=== PATIENT | female | born 1990 | race African-American/Black ===

== ENCOUNTER 2019-02-16 03:07 | Inpatient (IN) | payer SELFPAY ==
[~2019-02-16] VITALS: Ht 162.6 cm; Wt 65.1 kg
[2019-02-16 05:57] LABS: Basophils # (auto) 0.1 uL; Basophils % (auto) 0.5 % (0.0-2.0); Eosinophils # (auto) 0 uL; Eosinophils % (auto) 0.3 % (0.0-7.0); Hematocrit 34.7 % (36.0-46.0); Hemoglobin 11.4 g/dL (12.2-16.2); Lymphocytes # (auto) 1.6 uL; Lymphocytes % (auto) 15.3 % (10.0-50.0); Mean Corpuscular Hemoglobin 28.4 pg (28.0-32.0); Mean Corpuscular Hgb Conc. 32.7 g/dL (32.0-36.0); Mean Corpuscular Volume 86.9 fL (80.0-100.0); Monocytes # (auto) 0.5 uL; Monocytes % (auto) 5.2 % (0.0-12.0); Neutrophils % (auto) 78.7 % (37.0-80.0); Platelet Count (auto) 249 10^3/uL (140-450); Red Cell Distribution Width 13.3 % (11.8-14.3); White Blood Cell 10.2 10^3/uL (4.4-10.8)
[2019-02-16 05:59] LABS: Urine Amorphous Crystal MOD /hpf (None Seen); Urine Bacteria FEW /hpf (None Seen); Urine Blood Negative /uL (Negative); Urine Mucus FEW (None Seen); Urine Specific Gravity 1.019 (1.001-1.035); Urine WBC 1 /hpf (0 - 5)
[2019-02-16 06:21] LABS: Albumin 3.9 g/dL (3.4-5.0); Calcium 8.5 mg/dL (8.5-10.1); Potassium 3.9 mmol/L (3.5-5.1)
[2019-02-16] MEDS ORDERED: SODIUM CHLORIDE 0.9% 1,000 ML IV ONE ×2 (06:23)
[2019-02-16 06:26] LABS: BUN/Creatinine Ratio 13.5; Bilirubin, Total 0.3 mg/dL (0.2-1.0); Total Protein 7.9 g/dL (6.4-8.2)
[2019-02-16] MEDS ORDERED: DONNATAL 5ml ORAL Elix (BELLADONNA ALK-PHENOBARB) PO ONE (06:30)
[2019-02-16] MEDS ORDERED: LIDOCAINE VISCOUS 2% 15ML UD PO ONE (06:30)
[2019-02-16] MEDS ORDERED: ALUM & MAG HYDROX-SIMETH LIQ(MAALOX) 30 ML PO ONE (06:30)
[2019-02-16] MEDS ORDERED: ONDANSETRON HCL 4 MG/2 ML VIAL IV ONE ×2 (07:45→16:45)
[2019-02-16] MEDS ORDERED: MORPHINE SULFATE 4 MG/ML SYR/VIAL IV ONE ×2 (07:45→18:00)
[2019-02-16] MEDS ORDERED: D5W/SOD CHL 0.45%/KCL 20MEQ 1,000 ML IV SCH (10:15)
[2019-02-16] MEDS ORDERED: NITROGLYCERIN 0.4 MG SL TAB SL PRN (10:15)
[2019-02-16] MEDS ORDERED: MORPHINE SULF INJ 2 MG/ML SYRINGE 1ML IV PRN (10:15)
[2019-02-16] MEDS ORDERED: ONDANSETRON HCL 4 MG/2 ML VIAL IV PRN ×2 (10:15→17:45)
[2019-02-16] MEDS ORDERED: cefTRIAXone 1GM/50ML D5W 50 ML IV SCH (10:30)
[2019-02-16] MEDS ORDERED: ceFAZolin 1GM/50ML 50 ML IV ONE (13:41)
[2019-02-16 14:19] LABS: INR 0.97 (0.9-1.15); Partial Thromboplastin Time 28.5 sec (23.78-33.04); Prothrombin Time 10.4 sec (9.27-12.13)
[2019-02-16] MEDS ORDERED: MEPERIDINE HCL (50 MG/ML) 1 ML VIAL ONE (14:33)
[2019-02-16] MEDS ORDERED: MIDAZOLAM HCL 1MG/1ML-2 ML VIAL ONE (14:33)
[2019-02-16] MEDS ORDERED: fentaNYL CITRATE 100 MCG/2 ML VL ONE (14:33)
[2019-02-16] MEDS ORDERED: DexAMETHasone SOD PHOS 10MG/1ML VIAL INJ ONE (14:35)
[2019-02-16] MEDS ORDERED: PROPOFOL 10 MG/ML 20 ML IV ONE (14:35)
[2019-02-16] MEDS ORDERED: GLYCOPYRROLATE 0.2 MG/ML 1ML VIAL IV ONE (14:58)
[2019-02-16] MEDS ORDERED: NEOSTIGMINE 1 MG/ML INJ (10mg/10ML VIAL) IV ONE (14:58)
[2019-02-16] MEDS ORDERED: ROCURONIUM 10MG/ML 10ML VIAL IV ONE (15:16)
[2019-02-16] MEDS ORDERED: KETOROLAC TROMETH 30 MG/ML 1ML VIAL ONE (15:50)
[2019-02-16] MEDS ORDERED: MORPHINE SULFATE 4 MG/ML SYR/VIAL IV PRN (16:45)
[2019-02-16] MEDS ORDERED: LABETALOL HCL 5 MG/ML 4ML SYRINGE IV PRN (16:45)
[2019-02-16] MEDS ORDERED: MIDAZOLAM HCL 1MG/1ML-2 ML VIAL IV PRN (16:45)
[2019-02-16] MEDS ORDERED: KETOROLAC TROMETH 30 MG/ML 1ML VIAL IV ONE (16:45)
[2019-02-16] MEDS ORDERED: ePHEDrine SULFATE 50 MG/ML AMP IV PRN (16:45)
[2019-02-16] MEDS ORDERED: HYDROmorphone HCL 2 MG/ML VL ONE (16:47)
[2019-02-16] MEDS: HYDROmorphone HCL 2 MG/ML VL IV PRN ×2 (16:52→17:27)
[2019-02-16] MEDS ORDERED: D5W/SOD CHL 0.45%/KCL 20MEQ 1,000 ML IV ONE (17:45)
[2019-02-16 18:35] VITALS: BP 110/74
--- NOTE | 2019-02-16 18:36 | NUR ---
PT ADMITTED TO FLOOR VIA BED. S/P LAP CHOLEY. 3 SMALL ABDOMINAL INCISIONS NOTED COVERED WITH GAUZE AND TEGADERM. MINIMAL SEROSANGUINEOUS DRAINAGE AND BETA DYNE NOTED ON GAUZE. ABDOMINAL BINDER IN PLACE, ANGELA DRAIN WITH 15 MLS SANGUINOUS DRAINAGE NOTED. PT REPORTS 5/10 PAIN IN ABDOMEN. RECEIVED IN REPORT FROM POST OP NURSE, PT RECEIVED DILAUDID AT 1727. VITALS: T 97.7, HR 53, 02 91, BP 110/74, RR 14. PT ORIENTED TO FLOOR AND CALL LIGHT. ENCOURAGED PATIENT TO USE CALL LIGHT PRN, WILL CONTINUE TO MONITOR.
--- NOTE | 2019-02-16 19:45 | NUR ---
ASSUMED CARE, PT. AWAKE EATING HER DINNER, NO C/O PAIN, INCISIONS ON ABDOMINAL AREA, SMALL DRESSINGS DRY AND INTACT, NO SOB.
[2019-02-16 21:30] VITALS: BP 107/65
[2019-02-16] MEDS: ceFAZolin 1GM/50ML 50 ML IV SCH (21:35)
[2019-02-16] MEDS: MORPHINE SULF INJ 2 MG/ML SYRINGE 1ML IV PRN (22:03)
[2019-02-17] MEDS: MORPHINE SULF INJ 2 MG/ML SYRINGE 1ML IV PRN ×4 (04:24→22:14)
[2019-02-17 04:30] VITALS: BP 121/70
[2019-02-17 05:28] LABS: Basophils # (auto) 0 uL; Eosinophils # (auto) 0 uL; Hematocrit 34.7 % (36.0-46.0); Hemoglobin 11.1 g/dL (12.2-16.2); Lymphocytes # (auto) 1.2 uL; Lymphocytes % (auto) 9.8 % (10.0-50.0); Mean Corpuscular Hgb Conc. 31.9 g/dL (32.0-36.0); Mean Corpuscular Volume 87.5 fL (80.0-100.0); Monocytes # (auto) 0.5 uL; Monocytes % (auto) 4.1 % (0.0-12.0); Neutrophils # (auto) 10.6 uL; Neutrophils % (auto) 86.1 % (37.0-80.0); Platelet Count (auto) 229 10^3/uL (140-450); Red Blood Cells 3.97 10^6/uL (4.0-5.20); Red Cell Distribution Width 13.5 % (11.8-14.3); White Blood Cell 12.3 10^3/uL (4.4-10.8)
[2019-02-17] MEDS: ceFAZolin 1GM/50ML 50 ML IV SCH ×3 (05:33→22:14)
--- NOTE | 2019-02-17 08:00 | NUR ---
Opening Shift Note Assumed care of patient, awake and alert. No S/S of distress/SOB, complained 7/10 abdominal pain, recently medicated with Morphine IV for pain. S/P Laparoscopic Cholecystectomy 02/16/19 with dressings dry and intact, abdominal binder reapplied. Encouraged early ambulation. Instructed on POC and to call for assist PRN, will continue to monitor for changes Q1hr and PRN.
[2019-02-17 08:37] VITALS: BP 109/69
[2019-02-17] MEDS: PANTOPRAZOLE 40 MG/10 ML VIAL IV SCH (09:53)
--- NOTE | 2019-02-17 10:00 | NUR ---
ANGELA drain intact placed on the right side of the abdomen draining to serosanguinous output in small amount. Continue care.
[2019-02-17 13:04] VITALS: BP 114/65
[2019-02-17] MEDS: SODIUM CHLORIDE 0.9% 1,000 ML IV SCH (16:54)
[2019-02-17 17:20] VITALS: BP 122/76
--- NOTE | 2019-02-17 18:55 | NUR ---
Patient moved to rm 212-B
--- NOTE | 2019-02-17 19:00 | NUR ---
Opening Shift Note Assumed care of patient asleep with breathing even and unlabored. No S/S of distress/SOB or pain. Will continue to monitor for changes Q1hr and PRN. Side rails up x2. Bed locked in lowest position. Call light within reach.
[2019-02-17 21:30] VITALS: BP 112/69
[2019-02-17] MEDS: ONDANSETRON HCL 4 MG/2 ML VIAL IV PRN (22:14)
--- NOTE | 2019-02-18 02:21 | NUR ---
Rounds Patient in bed asleep with breathing even and unlabored. Will continue to monitor.
[2019-02-18 04:30] VITALS: BP 104/73
[2019-02-18] MEDS: MORPHINE SULF INJ 2 MG/ML SYRINGE 1ML IV PRN ×2 (05:27→12:52)
[2019-02-18] MEDS: ceFAZolin 1GM/50ML 50 ML IV SCH ×3 (05:27→21:55)
[2019-02-18 05:59] LABS: Basophils # (auto) 0 uL; Basophils % (auto) 0.3 % (0.0-2.0); Eosinophils # (auto) 0.1 uL; Hematocrit 30.2 % (36.0-46.0); Hemoglobin 9.8 g/dL (12.2-16.2); Lymphocytes # (auto) 1.7 uL; Mean Corpuscular Hemoglobin 28.4 pg (28.0-32.0); Mean Corpuscular Hgb Conc. 32.4 g/dL (32.0-36.0); Mean Corpuscular Volume 87.8 fL (80.0-100.0); Monocytes # (auto) 0.6 uL; Monocytes % (auto) 10.3 % (0.0-12.0); Neutrophils # (auto) 3.5 uL; Neutrophils % (auto) 59.4 % (37.0-80.0); Nucleated Red Blood Cells % 0.1 %; Platelet Count (auto) 193 10^3/uL (140-450); Red Blood Cells 3.44 10^6/uL (4.0-5.20); Red Cell Distribution Width 13.4 % (11.8-14.3)
[2019-02-18 06:14] LABS: Potassium 3.5 mmol/L (3.5-5.1)
[2019-02-18 06:22] LABS: Albumin 2.9 g/dL (3.4-5.0); BUN/Creatinine Ratio 6.4; Bilirubin, Total 1.6 mg/dL (0.2-1.0); Calcium 7.5 mg/dL (8.5-10.1); Total Protein 6.1 g/dL (6.4-8.2)
[2019-02-18] MEDS: SODIUM CHLORIDE 0.9% 1,000 ML IV SCH (06:56)
--- NOTE | 2019-02-18 07:18 | NUR ---
Endorsed care to day shift RN. Patient in bed asleep with breathing even and unlabored.
--- NOTE | 2019-02-18 09:00 | NUR ---
Patient states she is ambulating to the bathroom. Patient states she is feeling gas pains but is not passing gas, yet. Encouraged patient to ambulate. Patient states understanding.
[2019-02-18 09:05] VITALS: BP 108/67
[2019-02-18] MEDS: ONDANSETRON HCL 4 MG/2 ML VIAL IV PRN (09:28)
[2019-02-18] MEDS: PANTOPRAZOLE 40 MG/10 ML VIAL IV SCH (09:28)
[2019-02-18 12:53] VITALS: BP 113/68
[2019-02-18] MEDS ORDERED: KETOROLAC TROMETH 30 MG/ML 1ML VIAL IV PRN (15:15)
[2019-02-18] MEDS ORDERED: KETOROLAC TROMETH 30 MG/ML 1ML VIAL IV ONE (15:15)
[2019-02-18] MEDS: SOD CHL 0.9%/ KCL 20MEQ 1,000 ML IV SCH (15:25)
--- NOTE | 2019-02-18 15:38 | NUR ---
Dr. Farrar in to see patient as hospitalist.
--- NOTE | 2019-02-18 15:42 | NUR ---
NUTRITION ASSESSMENT NOTES Please refer to link notes of nutrition screen form filed under the intervention section of the plan of care for further details. Est. Needs: 1700 kcal to 2050 kcal (25-30 kcal/kgBW), 68 gms to 82 gms pro (1.0-1.2 gms/kgBW). Will continue to monitor pertinent labs and reassess nutrient need prn Thank you. Addendum: 02/18/19 at [address] Amended: Links added.
[2019-02-18 16:27] VITALS: BP 100/65
--- NOTE | 2019-02-18 19:20 | NUR ---
Opening Shift Note Assumed care of patient, awake and alert. No S/S of distress/SOB or pain. Family at bedside. Bed in lowest locked position, side rails up x2, call light within reach. Instructed on POC and to call for assist PRN, will continue to monitor for changes Q1hr and PRN.
[2019-02-18 22:00] VITALS: BP 106/75
[2019-02-19] MEDS: SOD CHL 0.9%/ KCL 20MEQ 1,000 ML IV SCH ×2 (04:47→18:20)
[2019-02-19 05:00] VITALS: BP 112/66
[2019-02-19] MEDS: ceFAZolin 1GM/50ML 50 ML IV SCH ×3 (05:44→21:57)
[2019-02-19 06:15] LABS: Basophils # (auto) 0 uL; Basophils % (auto) 0.2 % (0.0-2.0); Eosinophils # (auto) 0.1 uL; Eosinophils % (auto) 2.3 % (0.0-7.0); Hematocrit 29.6 % (36.0-46.0); Hemoglobin 9.5 g/dL (12.2-16.2); Lymphocytes # (auto) 1.5 uL; Lymphocytes % (auto) 27.2 % (10.0-50.0); Mean Corpuscular Hemoglobin 28.2 pg (28.0-32.0); Mean Corpuscular Hgb Conc. 32.2 g/dL (32.0-36.0); Mean Corpuscular Volume 87.5 fL (80.0-100.0); Monocytes # (auto) 0.6 uL; Monocytes % (auto) 10.4 % (0.0-12.0); Neutrophils # (auto) 3.4 uL; Neutrophils % (auto) 59.9 % (37.0-80.0); Platelet Count (auto) 201 10^3/uL (140-450); Red Blood Cells 3.38 10^6/uL (4.0-5.20); Red Cell Distribution Width 13.6 % (11.8-14.3); White Blood Cell 5.6 10^3/uL (4.4-10.8)
[2019-02-19 06:35] LABS: Albumin 2.8 g/dL (3.4-5.0); Calcium 7.5 mg/dL (8.5-10.1); Potassium 3.7 mmol/L (3.5-5.1)
[2019-02-19 06:41] LABS: BUN/Creatinine Ratio 5.3
[2019-02-19 06:42] LABS: Bilirubin, Total 1.4 mg/dL (0.2-1.0); Total Protein 6.5 g/dL (6.4-8.2)
--- NOTE | 2019-02-19 07:15 | NUR ---
Open Shift Note Received report on patient, awake and sitting up in bed. Patient shows no signs of distress at this time. Bed in lowest locked position, side rails up x2, and call light within reach. Will continue to monitor.
--- NOTE | 2019-02-19 07:30 | NUR ---
Closing Note Patient lying in bed, awake and alert. No s/s of distress. Bed in lowest locked position, side rails up x2, call light within reach. Less than 50 ml of serosanguineous drainage emptied from ANGELA drains. Care endorsed to dayshift RN.
[2019-02-19 09:00] VITALS: BP 110/64
[2019-02-19] MEDS: ACETAMINOPHEN 500 MG TAB PO PRN ×2 (09:24→22:04)
[2019-02-19] MEDS: PANTOPRAZOLE 40 MG/10 ML VIAL IV SCH (09:24)
[2019-02-19 13:25] VITALS: BP 102/75
[2019-02-19 17:24] VITALS: BP 109/69
--- NOTE | 2019-02-19 19:34 | NUR ---
End of Shift Endorsed care to NOC nurse Felipa. Patient shows no signs of distress at this time.
[2019-02-19 22:00] VITALS: BP 120/75
[2019-02-20] MEDS: ceFAZolin 1GM/50ML 50 ML IV SCH ×2 (05:29→12:44)
[2019-02-20 06:28] LABS: Basophils # (auto) 0 uL; Basophils % (auto) 0.4 % (0.0-2.0); Eosinophils # (auto) 0.2 uL; Hematocrit 29.9 % (36.0-46.0); Hemoglobin 9.8 g/dL (12.2-16.2); Lymphocytes # (auto) 2.1 uL; Lymphocytes % (auto) 35.8 % (10.0-50.0); Mean Corpuscular Hemoglobin 28.7 pg (28.0-32.0); Mean Corpuscular Hgb Conc. 32.8 g/dL (32.0-36.0); Mean Corpuscular Volume 87.6 fL (80.0-100.0); Monocytes # (auto) 0.6 uL; Neutrophils # (auto) 2.9 uL; Neutrophils % (auto) 49.8 % (37.0-80.0); Nucleated Red Blood Cells % 0.1 %; Platelet Count (auto) 204 10^3/uL (140-450); Red Blood Cells 3.41 10^6/uL (4.0-5.20); Red Cell Distribution Width 13.3 % (11.8-14.3); White Blood Cell 5.8 10^3/uL (4.4-10.8)
[2019-02-20 06:56] LABS: Calcium 8.2 mg/dL (8.5-10.1); Potassium 3.9 mmol/L (3.5-5.1)
[2019-02-20 06:59] LABS: BUN/Creatinine Ratio 4.7
--- NOTE | 2019-02-20 07:20 | NUR ---
Closing Note Patient lying in bed, awake and alert. No s/s of distress. Bed in lowest locked position, side rails up x2, call light within reach. Care endorsed to dayshift RN.
--- NOTE | 2019-02-20 07:30 | NUR ---
Opening Shift Note Assuming care of patient at this time. Patient is awake and alert. Patient shows no signs or symptoms of distress or shortness of breath at this time. Patient denies pain. Instructed patient on the plan of care for today and to call for assistance as needed. Call light within reach. Will continue to round hourly.
[2019-02-20 08:18] VITALS: BP 108/54
[2019-02-20] MEDS: SOD CHL 0.9%/ KCL 20MEQ 1,000 ML IV SCH ×2 (08:48→09:22)
[2019-02-20] MEDS: PANTOPRAZOLE 40 MG/10 ML VIAL IV SCH (09:22)
--- NOTE | 2019-02-20 10:00 | NUR ---
at bedside Dr. Duron at bedside discussing plan of care with patient. Patient is to be discharged today after dose of antibiotics. Per Dr. Duron, he wants the 1400 dose of ancef to be given around noon. Patient aware of discharge.
[2019-02-20 12:01] VITALS: BP 125/63
--- NOTE | 2019-02-20 13:57 | NUR ---
Discharge Discharge instructions given as ordered. Encourage to follow up with Dr. Pickens as instructed. Urgent Care coupon and information for [facility] and [facility] included. All questions and concerns addressed. Patient verbalized understanding. Medication reconciliation form completed and copy given to patient. Home medications held in Pharmacy returned to patient, and needed vaccines given. IV removed with catheter intact. Patient taken to vehicle via wheelchair with all personal belongings, accompanied by staff and family member. No distress noted at time of departure.
== END 2019-02-20 14:00 | disposition home or self-care (01) | DRG 854 ==
LOC: ER 03:10 → TELE 10:10 → CENTRAL 18:26 → TELE-CENTR 02-17 01:24 → CENTRAL 02-18 15:14
PROVIDERS: ADMIT Nurse Practitioner Acute Care; ATTEND Internal Medicine
PROC: 0FT44ZZ Resection of Gallbladder, Percutaneous Endoscopic Approach (ICD-10-PCS; principal; 2019-02-16 14:58)
DX: A41.9 Sepsis, unspecified organism (principal); K80.00 Calculus of gallbladder with acute cholecystitis without obstruction; N20.0 Calculus of kidney; D64.9 Anemia, unspecified
CPT/HCPCS: 36415; 71045; 74176; 76705; 80048; 80053; 81001; 81025; 82150; 82247; 83690; 83735; 84702; 85025; 85610; 85730; 86850; 86900; 86901; 96361; 96374; 96375; A6257; C9113; G0378; J0690; J0696; J1100; J1885; J2250; J2405; J2704